=== PATIENT | female | born 1955 | race Caucasian/White ===

== ENCOUNTER 2019-11-14 18:35 | Emergency (ER) | payer OTHER ==
[~2019-11-14] VITALS: Ht 157.5 cm; Wt 8.2 kg
[2019-11-14 19:03] LABS: BASOPHILS # (AUTO) 0.2 X10'3 (0-0.2); BASOPHILS % (AUTO) 1.3 % (0-1); EOSINOPHILS % (AUTO) 0.3 % (0-6); HEMATOCRIT 43.5 % (35.0-45.0); HEMOGLOBIN 13.9 g/dl (12.0-16.0); LYMPHOCYTES # (AUTO) 2.5 X10'3 (1.1-4.8); LYMPHOCYTES % (AUTO) 19.1 % (21-51); MEAN CORPUSCULAR HGB CONC 31.9 g/dL (33.0-36.5); MEAN CORPUSCULAR VOLUME 87.6 FL (78-98); MEAN PLATELET VOLUME 8.5 FL (7.4-10.4); MONOCYTES % (AUTO) 7.6 % (2-12); NEUTROPHILS # (AUTO) 9.2 X10'3 (1.8-7.7); NEUTROPHILS % (AUTO) 71.7 % (42-75); PLATELET COUNT 504 X10'3 (140-440); RED BLOOD COUNT 4.96 X10'6 (4.20-5.60); RED CELL DISTRIBUTION WIDTH 13.1 % (11.5-14.5); WHITE BLOOD COUNT 12.8 X10'3 (4.5-11.0)
--- NOTE | 2019-11-14 19:15 | NUR ---
pt states she's unable to provide a urine sample
[2019-11-14 19:20] LABS: ALANINE AMINOTRANSFERASE 18 U/L (12-78); ALBUMIN 3.5 G/DL (3.4-5.0); ALBUMIN/GLOBULIN RATIO 0.8 (1.1-1.5); ALKALINE PHOSPHATASE 112 IU/L (46-116); ANION GAP 13 (8-16); ASPARTATE AMINO TRANSFERASE 10 U/L (10-37); BILIRUBIN,TOTAL 0.3 MG/DL (0.1-1.0); BLOOD UREA NITROGEN 64 MG/DL (7-18); BUN/CREATININE RATIO 21.8 (6.6-38.0); CALCIUM 8.6 MG/DL (8.5-10.1); CHLORIDE 87 MMOL/L (99-107); CREATININE 2.94 MG/DL (0.40-0.90); LIPASE 312 U/L (73-393); SODIUM 124 MMOL/L (135-145); TOTAL CARBON DIOXIDE 23.7 MMOL/L (24-32); TOTAL PROTEIN 7.8 G/DL (6.4-8.2); eGFR 16 ML/MIN
[2019-11-14 19:22] LABS: GLUCOSE 710 MG/DL (70-104)
[2019-11-14] MEDS ORDERED: normal saline 1000ml 1,000 ML IV ONE ×2 (19:50)
[2019-11-14 20:01] LABS: CLARITY,URINE SLIGHTLY CLOUDY (Clear); COLOR,URINE YELLOW (Yellow); GLUCOSE, URINE >=1000 mg/dl (Neg); KETONES,URINE NEGATIVE (Neg); LEUKOCYTE ESTERASE ,URINE TRACE (Neg); NITRITES, URINE NEGATIVE (Neg); OCCULT BLOOD,URINE TRACE-INTACT (Neg); PROTEIN,URINE 30 mg/dl (Neg); UA COLLECTION TYPE CLN CATCH MIDSTREAM; UROBILINOGEN,URINE 0.2 E.U/dL (0.2-1.0)
[2019-11-14 20:07] LABS: BACTERIA,URINE 1+ /HPF (Neg); RBC,URINE 0-2 /HPF (0-2); SQUAMOUS EPITHELIAL CELL,UR MODERATE /LPF (FEW); WBC CLUMPS,URINE FEW /HPF (NEGATIVE); WBC,URINE 30-50 /HPF (0-4)
[2019-11-14] MEDS ORDERED: CefTRIAXone/D5W-Rocephin 1gm 50 ML IV ONE (20:50)
[2019-11-14] MEDS ORDERED: CEFD300C3 PO (20:52)
[2019-11-14 21:45] VITALS: BP 165/80
== END 2019-11-14 21:48 | disposition home or self-care (01) ==
LOC: ER 18:37
DX: N39.0 Urinary tract infection, site not specified (principal); E11.65 Type 2 diabetes mellitus with hyperglycemia; R11.10 Vomiting, unspecified; R53.1 Weakness; Z79.899 Other long term (current) drug therapy
CPT/HCPCS: 36415; 80053; 81001; 82948; 83690; 85025; 87088; 93005; 96361; 96365; 99284; J0696; J7030

== ENCOUNTER 2021-08-23 12:00 | Day surgery (SDC) | payer MEDICARE ==
[2021-08-23] MEDS ORDERED: LEVO50TA8 PO (15:23)
[2021-08-23] MEDS ORDERED: METF-437 PO (15:23)
[2021-08-23] MEDS ORDERED: ASPI81TA52 PO (15:23)
[2021-08-23] MEDS ORDERED: LOSA25TA41 PO (15:23)
[2021-08-23] MEDS ORDERED: AMLO10TA13 PO (15:23)
[2021-08-23] MEDS ORDERED: ATOR10TA70 PO (15:23)
[2021-08-23] MEDS ORDERED: ACET-1025 PO (15:23)
[2021-08-23 15:29] LABS: BASOPHILS # (AUTO) 0.1 X10'3 (0-0.2); BASOPHILS % (AUTO) 1.1 % (0-1); EOSINOPHILS # (AUTO) 0.1 X10'3 (0-0.9); EOSINOPHILS % (AUTO) 1.5 % (0-6); LYMPHOCYTES % (AUTO) 21.4 % (21-51); MEAN CORPUSCULAR HEMOGLOBIN 27.2 PG (27.0-31.0); MEAN CORPUSCULAR HGB CONC 32.1 g/dL (33.0-36.5); MEAN CORPUSCULAR VOLUME 84.5 FL (78-98); MONOCYTES # (AUTO) 0.6 X10'3 (0-0.9); MONOCYTES % (AUTO) 6.3 % (2-12); NEUTROPHILS # (AUTO) 6.6 X10'3 (1.8-7.7); NEUTROPHILS % (AUTO) 69.7 % (42-75); PRE OP HEMATOCRIT 37.4 % (35.0-45.0); PRE OP PLATELET COUNT 479 X10'3 (140-440); RED BLOOD COUNT 4.43 X10'6 (4.20-5.60); RED CELL DISTRIBUTION WIDTH 14.2 % (11.5-14.5)
[2021-08-23 15:39] LABS: ALBUMIN 3.8 G/DL (3.4-5.0); ALBUMIN/GLOBULIN RATIO 0.9 (1.1-1.5); ALKALINE PHOSPHATASE 112 IU/L (46-116); BLOOD UREA NITROGEN 45 MG/DL (7-18); BUN/CREATININE RATIO 22.7 (6.6-38.0); CALCIUM 9.2 MG/DL (8.5-10.1); CHLORIDE 100 MMOL/L (99-107); CREATININE 1.98 MG/DL (0.40-0.90); PRE OP ALT 23 U/L (30-65); PRE OP ANION GAP 14 (8-16); PRE OP AST 7 U/L (10-37); PRE OP BILIRUB, TOTAL 0.1 MG/DL (0.0-1.0); PRE OP POTASSIUM 4.7 MMOL/L (3.4-5.1); PRE OP SODIUM 136 MMOL/L (135-145); TOTAL CARBON DIOXIDE 21.6 MMOL/L (24-32); TOTAL PROTEIN 8.1 G/DL (6.4-8.2); eGFR 25 ML/MIN
[2021-08-23 15:40] LABS: PRE OP GLUCOSE 439 MG/DL (70-104)
[2021-08-23 18:41] LABS: HEMOGLOBIN A1C 13.6 % (4.5-6.2)
== END 2021-08-23 23:59 | disposition home or self-care (01) ==
LOC: PRE-OP 12:00
PROVIDERS: ATTEND Orthopaedic Surgery Hand Surgery
DX: Z01.818 Encounter for other preprocedural examination (principal); M18.11 Unilateral primary osteoarthritis of first carpometacarpal joint, right hand; M77.01 Medial epicondylitis, right elbow; E11.9 Type 2 diabetes mellitus without complications; I10 Essential (primary) hypertension; E03.9 Hypothyroidism, unspecified; Z79.899 Other long term (current) drug therapy; Z79.84 Long term (current) use of oral hypoglycemic drugs; Z98.818 Other dental procedure status; Z98.51 Tubal ligation status
CPT/HCPCS: 36415; 80053; 83036; 85025; 93005; U0003; U0005

== ENCOUNTER 2021-11-12 06:19 | Day surgery (SDC) | payer MEDICARE, BC ==
[2021-11-03 10:15] LABS: BASOPHILS # (AUTO) 0.1 X10'3 (0-0.2); BASOPHILS % (AUTO) 1.1 % (0-1); EOSINOPHILS # (AUTO) 0.1 X10'3 (0-0.9); EOSINOPHILS % (AUTO) 1.4 % (0-6); LYMPHOCYTES # (AUTO) 1.5 X10'3 (1.1-4.8); LYMPHOCYTES % (AUTO) 18.5 % (21-51); MEAN CORPUSCULAR HGB CONC 33.3 g/dL (33.0-36.5); MEAN CORPUSCULAR VOLUME 84.3 FL (78-98); MEAN PLATELET VOLUME 7.3 FL (7.4-10.4); MONOCYTES # (AUTO) 0.5 X10'3 (0-0.9); MONOCYTES % (AUTO) 5.8 % (2-12); NEUTROPHILS # (AUTO) 6.1 X10'3 (1.8-7.7); NEUTROPHILS % (AUTO) 73.2 % (42-75); PRE OP HEMATOCRIT 32.6 % (35.0-45.0); PRE OP PLATELET COUNT 561 X10'3 (140-440); RED BLOOD COUNT 3.87 X10'6 (4.20-5.60); RED CELL DISTRIBUTION WIDTH 14.3 % (11.5-14.5)
[2021-11-03 10:19] LABS: PRE OP HEMOGLOBIN 10.9 g/dL (12.0-16.0)
[2021-11-03 10:45] LABS: ALBUMIN 3.6 G/DL (3.4-5.0); ALBUMIN/GLOBULIN RATIO 0.8 (1.1-1.5); ALKALINE PHOSPHATASE 106 IU/L (46-116); BLOOD UREA NITROGEN 46 MG/DL (7-18); BUN/CREATININE RATIO 24.9 (6.6-38.0); CALCIUM 9.1 MG/DL (8.5-10.1); CHLORIDE 105 MMOL/L (99-107); CREATININE 1.85 MG/DL (0.40-0.90); PRE OP ALT 24 U/L (30-65); PRE OP ANION GAP 11 (8-16); PRE OP AST 13 U/L (10-37); PRE OP BILIRUB, TOTAL 0.1 MG/DL (0.0-1.0); PRE OP GLUCOSE 157 MG/DL (70-104); PRE OP POTASSIUM 4.7 MMOL/L (3.4-5.1); PRE OP SODIUM 141 MMOL/L (135-145); TOTAL CARBON DIOXIDE 25.5 MMOL/L (24-32); TOTAL PROTEIN 8.1 G/DL (6.4-8.2); eGFR 27 ML/MIN
[~2021-11-12] VITALS: Ht 157.5 cm; Wt 77.6 kg
[2021-11-12] VITALS (8 sets, daily range): BP systolic 117–154; BP diastolic 58–85
[~2021-11-12 06:19] MED LIST: ACET-1025 PO; AMLO10TA13 PO; ASPI81TA52 PO; ATOR10TA70 PO; INSU100I40 SQ; LEVO50TA8 PO; LOSA25TA41 PO; METF-437 PO; ceFAZolin inj. 2,000 MG in dextrose 5%-water 100 ML IV ONE; famotidine 20mg tablet PO ONE; ringers solution, lacted 1,000 ML IV SCH
[2021-11-12] MEDS ORDERED: fentaNYL/PF 50MCG/1 ML 2ML syringe IV PRN ×2 (07:20)
[2021-11-12] MEDS ORDERED: hydrALAZINE 20mg/ml inj. IV PRN (07:20)
[2021-11-12] MEDS ORDERED: labetalol 20mg/4ml (5mg/ml) syringe IV PRN (07:20)
[2021-11-12] MEDS ORDERED: morphine 4 MG/ML inj SYRINge IV PRN (07:20)
[2021-11-12] MEDS ORDERED: ondansetron/PF 4mg/2ml inj IV PRN (07:20)
[2021-11-12] MEDS ORDERED: ringers solution, lacted 1,000 ML IV SCH (07:20)
[2021-11-12] MEDS ORDERED: morphine 2 MG/ML inj. syringe IV PRN (07:20)
[2021-11-12] MEDS ORDERED: LIDOcaine 0.5% (5mg/ml) 50ml vial ONE (07:28)
[2021-11-12] MEDS ORDERED: ketorolac trometh. 30mg/ml inj. ONE (08:51)
[2021-11-12] MEDS ORDERED: fentaNYL/PF 50MCG/1 ML 2ML syringe ONE (08:57)
[2021-11-12] MEDS ORDERED: MIDAZolam 5mg/ml 2ml vial ONE (08:58)
[2021-11-12] MEDS ORDERED: BUPIVAcaine/PF 2.5 mg/ml (0.25%) 30ml vial ONE (09:30)
--- NOTE | 2021-11-12 10:00 | NUR ---
Received from OR via [facility], accompanied by Anesthesiologist DR BERMEO and report given by Anesthesiolgist. PT IS AWAKE, ALERT AND ANSWERING QUESTIONS APPROPRIATELY. PT IS ABLE TO MOVE ALL EXTREMITIES FREELY AND TO COMMAND. PT PLACED ON BEDSIDE MONITOR, VAA. PT IN SR WITH RATE IN 80'S, ON RA AND TOLERATING WELL WITH O2 SAT >96%. PT HAS 22G PIV TO LT HAND WITH LR INFUSING ORDERED. PT HAS DRSG TO RT HAND WITH CARMINE WRAP COVERING SPLINT. CARMINE WRAP FROM FINGERS TO ABOVE ELBOW ON RT ARM. IT IS CDI AND PT IS WIGGLING FINGERS, STATES A LITTLE BIT OF TINGLING SENSATION BUT PT DENIES PAIN AT THIS TIME AND WILL CONTINUE TO ASSESS.
--- NOTE | 2021-11-12 11:10 | NUR ---
ALL DISCHARGE CRITERIA HAS BEEN MET. VSS, PAIN AT A TOLERABLE LEVEL, VOIDING AND ABLE TO SAFELY AMBULATE AND TRANSFER SELF. IV TAKEN OUT WITHOUT ANY COMPLICATIONS. ALL DISCHARGE INSTRUCTIONS COVERED WITH PATIENT AND ALL QUESTIONS ANSWERED. PATIENT TAKEN OUT VIA WHEELCHAIR TO PERSONAL VEHICLE WHERE DAUGHTER DROVE PATIENT HOME.
[2021-11-24] MEDS ORDERED: LOP12.5T PO (13:56)
[2021-11-24] MEDS ORDERED: ALBU8.5H17 INH (13:57)
== END 2021-11-12 11:02 | disposition home or self-care (01) ==
LOC: PAS 06:19
PROVIDERS: ATTEND Orthopaedic Surgery Hand Surgery
DX: M77.01 Medial epicondylitis, right elbow (principal); M18.11 Unilateral primary osteoarthritis of first carpometacarpal joint, right hand; E03.9 Hypothyroidism, unspecified; E11.22 Type 2 diabetes mellitus with diabetic chronic kidney disease; I12.9 Hypertensive chronic kidney disease with stage 1 through stage 4 chronic kidney disease, or unspecified chronic kidney disease; N18.30 Chronic kidney disease, stage 3 unspecified; Z79.899 Other long term (current) drug therapy; Z98.890 Other specified postprocedural states; Z98.51 Tubal ligation status
CPT/HCPCS: 24359; 25312; 25447; 36415; 80053; 82948; 85025; J0690; J1885; J2250; J3010; J3490; J7030; J7060; J7120; Z7506; Z7508; Z7512; A4215; A4618; A7000